=== PATIENT | female | born 1980 | race Caucasian/White ===

== ENCOUNTER 2019-07-07 16:08 | Emergency (ER) | payer OTHER ==
[2019-07-07] MEDS ORDERED: IBUPROFEN 800 MG TABLET PO ONE (17:16)
[2019-07-07] MEDS ORDERED: DIPH/PERTUSS(ACELL)/TETANUS VAC/PF 0.5 ML SYR (>=10YO) IM ONE (17:16)
[2019-07-07] MEDS ORDERED: AMOXICILLIN TRIHYD 250 MG CAPSULE PO ONE (17:16)
[2019-07-07] MEDS ORDERED: AMOXICILLIN TR/POT CLAVULANATE 500-125 MG TAB PO ONE (17:16)
--- NOTE | 2019-07-07 17:18 | ER Document Report ---
HPI - HPI Patient complains to provider of: Puncture wound Time Seen by Provider: 07/07/19 16:52 Onset: This afternoon Onset/Duration: Sudden Quality of pain: Achy Pain Level: 3 Context: Patient was pulling down a fence, tripped and fell landing back on 2 nails. Patient with puncture wound x2 to right lower leg. Patient states whenever she would ambulate she would have bleeding. Patient without any active bleeding at present from the wound. Associated Symptoms: Other - Puncture wound to right leg Exacerbated by: Movement, Walking Relieved by: Denies Similar symptoms previously: No Recently seen / treated by doctor: No - ROS ROS below otherwise negative: Yes Systems Reviewed and Negative: Yes All other systems reviewed and negative - CONSTITUTIONAL Constitutional: DENIES: Fever, Chills - NEURO Neurology: DENIES: Weakness, Dizzinesss / Vertigo - GASTROINTESTINAL Gastrointestinal: DENIES: Nausea - REPRODUCTIVE Reproductive: DENIES: : - MUSCULOSKELETAL Musculoskeletal: REPORTS: Extremity pain - DERM Skin Problems: Puncture Wound Past Medical History - General Information source: Patient - Social History Smoking Status: Never Smoker Chew tobacco use (# tins/day): No Frequency of alcohol use: None Drug Abuse: None Family History: Reviewed & Not Pertinent Patient has suicidal ideation: No Patient has homicidal ideation: No Renal/ Medical History: Denies: Hx Peritoneal Dialysis Psychiatric Medical History: Reports: Hx Depression Past Surgical History: Reports: Hx Oral Surgery, Hx Orthopedic Surgery Vertical Provider Document - CONSTITUTIONAL Agree With Documented VS: Yes Exam Limitations: No Limitations General Appearance: WD/WN, No Apparent Distress - INFECTION CONTROL TRAVEL OUTSIDE OF THE [place] IN LAST 30 DAYS: No - HEENT HEENT: Atraumatic, Normocephalic - NECK Neck: Normal Inspection - RESPIRATORY Respiratory: No Respiratory Distress - MUSCULOSKELETAL/EXTREMETIES Musculoskeletal/Extremeties: MAEW, FROM, Tender - Distal third of posterior right lower leg, No Edema Notes: Normal Vargas squeeze test - NEURO Level of Consciousness: Awake, Alert, Appropriate Motor/Sensory: No Motor Deficit - DERM Integumentary: Warm, Dry Notes: Puncture wound x2 to posterior aspect of right lower leg, no surrounding erythema. No active bleeding. Course - Vital Signs Vital signs: Temp Pulse Resp BP Pulse Ox 98.1 F 62 17 99/64 L 100 07/07/19 16:13 07/07/19 16:13 07/07/19 16:13 07/07/19 16:13 07/07/19 16:13 Discharge - Discharge Clinical Impression: Puncture wound Condition: Stable Disposition: HOME, SELF-CARE Instructions: Augmentin ([facility]), Use of Crutches ([facility]), Dressing Instructions for Open Wounds ([facility]), Puncture Wound ([facility]), Tetanus Immunization Given ([facility]) Additional Instructions: Return immediately for any new or worsening symptoms Followup with your primary care provider, call tomorrow to make a followup appointment Weightbearing as tolerated Monitor for any signs of infection such as redness, increased pain, fever, purulent drainage or any concerning symptoms Prescriptions: Amox Tr/Potassium Clavulanate [Augmentin 875-125 Tablet] 1 tab PO BID 5 Days tablet Naproxen [Naprosyn 250 Nmg Tablet] 1 tab PO BID #14 tablet Referrals: DEBORAH SILVEIRA FOR SURGERY ([facility]) [Provider Group] - Follow up as needed
[2019-07-07 17:33] VITALS: BP 110/72
== END 2019-07-07 17:35 | disposition home or self-care (01) ==
LOC: ER 16:08
DX: S81.831A Puncture wound without foreign body, right lower leg, initial encounter (principal); W01.118A Fall on same level from slipping, tripping and stumbling with subsequent striking against other sharp object, initial encounter
CPT/HCPCS: 90715; J3490; 90471; 99283